=== PATIENT | female | born 1980 | race Caucasian/White ===

== ENCOUNTER 2019-01-11 09:51 | Inpatient (IN) | payer OTHER ==
[2019-01-11] MEDS ORDERED: ONDANSETRON (ODT) 4 MG TAB ODT (10:00)
[2019-01-11] MEDS ORDERED: morphine 4 MG/ML VIAL IM (10:00)
[2019-01-11] MEDS ORDERED: morphine 4 MG/ML VIAL IV (10:06)
[2019-01-11] MEDS ORDERED: morphine 10 MG INJ (10:11)
[2019-01-11] MEDS: ONDANSETRON 4 MG INJ IV (10:12)
[2019-01-11] MEDS: morphine 10 MG INJ IV (10:12)
[2019-01-11] MEDS ORDERED: DIPHENHYDRAMINE 50 MG INJ (10:45)
[2019-01-11] MEDS: DIPHENHYDRAMINE 50 MG INJ IV (10:49)
[2019-01-11] MEDS ORDERED: ACETAMINOPHEN 325 MG TAB PO (12:30)
[2019-01-11] MEDS ORDERED: ONDANSETRON 4 MG INJ IV ×2 (12:30→13:30)
[2019-01-11 12:49] LABS: ADD MAN DIFF? NO
[2019-01-11 12:50] LABS: WHITE BLOOD COUNT 11.1 10^3/ul (4.8-10.8)
[2019-01-11 12:50] LABS: BASOPHILS % 0.4 % (0.0-2.0); EOSINOPHILS # 0.1 10^3/ul (0.0-0.5); EOSINOPHILS % 0.6 % (0.0-7.0); HEMATOCRIT 37.1 % (37.0-47.0); LYMPHOCYTES # 1.7 10^3/ul (0.8-2.9); LYMPHOCYTES % 14.9 % (15.0-51.0); MEAN CORPUSCULAR HEMOGLOBIN 30.2 pg (29.0-33.0); MEAN CORPUSCULAR HGB CONC 32.3 g/dl (32.0-37.0); MEAN CORPUSCULAR VOLUME 93.2 fl (82.0-101.0); MEAN PLATELET VOLUME 12.7 fl (7.4-10.4); MONOCYTE # 0.7 10^3/ul (0.3-0.9); MONOCYTES % 6.6 % (0.0-11.0); NEUTROPHIL # 8.5 10^3/ul (1.6-7.5); NEUTROPHILS % 76.6 % (39.0-77.0); PLATELET COUNT 296 10^3/UL (140-415); RED BLOOD COUNT 3.98 10^6/ul (4.20-5.40); RED CELL DISTRIBUTION WIDTH 13.3 % (11.5-14.5)
[2019-01-11 12:54] LABS: INR 0.98; PROTIME 13.1 Sec (11.9-14.9)
[2019-01-11 12:57] LABS: ALANINE AMINOTRANSFERASE 22 IU/L (13-69); ALBUMIN 4.4 g/dl (3.3-4.9); ALBUMIN/GLOBULIN RATIO 1.22; ALKALINE PHOSPHATASE 105 IU/L (42-121); ANION GAP 11 (5-13); ASPARTATE AMINO TRANSFERASE 22 IU/L (15-46); BILIRUBIN,INDIRECT 0.2 mg/dl (0-1.1); BILIRUBIN,TOTAL 0.2 mg/dl (0.2-1.3); BLOOD UREA NITROGEN 15 mg/dl (7-20); CALCIUM 8.7 mg/dl (8.4-10.2); CARBON DIOXIDE 21 mmol/L (21-31); CHLORIDE 111 mmol/L (97-110); CREATININE 0.57 mg/dl (0.44-1.00); Estimated GFR > 60 mL/min (>60); GLUCOSE 97 mg/dl (70-220); POTASSIUM 4.2 mmol/L (3.5-5.1); SODIUM 143 mmol/L (135-144)
[2019-01-11] MEDS ORDERED: NACL 0.9% 3 ML SYG IV (13:30)
[2019-01-11 14:09] LABS: MAGNESIUM 1.8 mg/dl (1.7-2.5)
[2019-01-11 14:49] LABS: HEMOGLOBIN A1C 4.8 % (0-5.9)
[2019-01-11 15:02] LABS: FREE T4 (FREE THYROXINE) 0.63 ng/dl (0.79-2.35)
[2019-01-11] MEDS: ZONISAMIDE 100 MG CAP PO (22:06)
[2019-01-11] MEDS: LAMOTRIGINE 100 MG TAB PO (22:06)
[2019-01-11] MEDS: OXCARBAZEPINE 300 MG TAB PO (22:47)
[2019-01-12 05:18] LABS: ADD MAN DIFF? NO
[2019-01-12 05:20] LABS: BASOPHILS % 0.3 % (0.0-2.0); EOSINOPHILS % 0.1 % (0.0-7.0); HEMATOCRIT 34.1 % (37.0-47.0); HEMOGLOBIN 11.1 g/dl (12.0-16.0); LYMPHOCYTES # 1.2 10^3/ul (0.8-2.9); LYMPHOCYTES % 11.1 % (15.0-51.0); MEAN CORPUSCULAR HEMOGLOBIN 29.8 pg (29.0-33.0); MEAN CORPUSCULAR HGB CONC 32.6 g/dl (32.0-37.0); MEAN CORPUSCULAR VOLUME 91.4 fl (82.0-101.0); MEAN PLATELET VOLUME 11.9 fl (7.4-10.4); MONOCYTE # 0.7 10^3/ul (0.3-0.9); MONOCYTES % 6.7 % (0.0-11.0); NEUTROPHILS % 81.3 % (39.0-77.0); PLATELET COUNT 276 10^3/UL (140-415); RED BLOOD COUNT 3.73 10^6/ul (4.20-5.40); RED CELL DISTRIBUTION WIDTH 13.2 % (11.5-14.5)
[2019-01-12 05:20] LABS: WHITE BLOOD COUNT 11.1 10^3/ul (4.8-10.8)
[2019-01-12 06:04] LABS: CHOLESTEROL 182 mg/dl (100-200)
[2019-01-12 06:04] LABS: CHOL/HDL RATIO 3.9 RATIO; HDL CHOLESTEROL 46 mg/dl (34-82); LDL CHOLESTEROL,CALCULATED 111 mg/dl; TRIGLYCERIDES 123 mg/dl (0-149)
[2019-01-12 06:06] LABS: MAGNESIUM 1.8 mg/dl (1.7-2.5)
[2019-01-12 06:06] LABS: PHOSPHORUS 2.7 mg/dl (2.5-4.9)
[2019-01-12 06:19] LABS: ALANINE AMINOTRANSFERASE 17 IU/L (13-69); ALBUMIN 4.1 g/dl (3.3-4.9); ALKALINE PHOSPHATASE 100 IU/L (42-121); ANION GAP 9 (5-13); ASPARTATE AMINO TRANSFERASE 18 IU/L (15-46); BILIRUBIN,INDIRECT 0.3 mg/dl (0-1.1); BILIRUBIN,TOTAL 0.3 mg/dl (0.2-1.3); BLOOD UREA NITROGEN 13 mg/dl (7-20); CALCIUM 9.1 mg/dl (8.4-10.2); CARBON DIOXIDE 19 mmol/L (21-31); CHLORIDE 111 mmol/L (97-110); CREATININE 0.49 mg/dl (0.44-1.00); Estimated GFR > 60 mL/min (>60); GLUCOSE 130 mg/dl (70-220); POTASSIUM 4.1 mmol/L (3.5-5.1); SODIUM 139 mmol/L (135-144); TOTAL PROTEIN 7.5 g/dl (6.1-8.1)
[2019-01-12] MEDS: morphine 2 MG INJ IV (09:31)
[2019-01-12] MEDS: OXCARBAZEPINE 300 MG TAB PO ×2 (09:39→21:29)
[2019-01-12] MEDS: ZONISAMIDE 100 MG CAP PO ×2 (09:40→21:30)
[2019-01-12] MEDS: LAMOTRIGINE 100 MG TAB PO ×2 (09:40→21:29)
[2019-01-13 06:27] LABS: ADD MAN DIFF? NO
[2019-01-13 06:36] LABS: BASOPHIL # 0.1 10^3/ul (0.0-0.1); BASOPHILS % 0.5 % (0.0-2.0); EOSINOPHILS # 0.1 10^3/ul (0.0-0.5); EOSINOPHILS % 1.1 % (0.0-7.0); HEMATOCRIT 37.4 % (37.0-47.0); LYMPHOCYTES # 2.2 10^3/ul (0.8-2.9); LYMPHOCYTES % 21.5 % (15.0-51.0); MEAN CORPUSCULAR HEMOGLOBIN 29.7 pg (29.0-33.0); MEAN CORPUSCULAR HGB CONC 32.1 g/dl (32.0-37.0); MEAN CORPUSCULAR VOLUME 92.6 fl (82.0-101.0); MEAN PLATELET VOLUME 12.4 fl (7.4-10.4); MONOCYTE # 1.1 10^3/ul (0.3-0.9); MONOCYTES % 10.6 % (0.0-11.0); NEUTROPHIL # 6.5 10^3/ul (1.6-7.5); PLATELET COUNT 277 10^3/UL (140-415); RED BLOOD COUNT 4.04 10^6/ul (4.20-5.40); RED CELL DISTRIBUTION WIDTH 13.3 % (11.5-14.5)
[2019-01-13 07:09] LABS: ANION GAP 10 (5-13); BLOOD UREA NITROGEN 14 mg/dl (7-20); CALCIUM 8.6 mg/dl (8.4-10.2); CARBON DIOXIDE 22 mmol/L (21-31); CHLORIDE 107 mmol/L (97-110); CREATININE 0.59 mg/dl (0.44-1.00); Estimated GFR > 60 mL/min (>60); GLUCOSE 102 mg/dl (70-220); POTASSIUM 3.7 mmol/L (3.5-5.1); SODIUM 139 mmol/L (135-144)
[2019-01-13] MEDS: ZONISAMIDE 100 MG CAP PO ×2 (09:00→23:56)
[2019-01-13] MEDS: OXCARBAZEPINE 300 MG TAB PO ×2 (09:00→23:55)
[2019-01-13] MEDS: LAMOTRIGINE 100 MG TAB PO ×2 (09:00→23:55)
[2019-01-13] MEDS ORDERED: CEFAZOLIN 1 GM INJ (12:10)
[2019-01-13] MEDS ORDERED: DESFLURANE 15 MIN (12:10)
[2019-01-13] MEDS ORDERED: DEXAMETHASONE 4 MG/ML 5 ML INJ (12:10)
[2019-01-13] MEDS ORDERED: FENTAnyl 50 MCG/ML VIAL ×3 (12:10→20:40)
[2019-01-13] MEDS ORDERED: GLYCOPYRROLATE 0.4 MG INJ (12:10)
[2019-01-13] MEDS ORDERED: NEOSTIGMINE 3 MG/3 ML SYRINGE (12:10)
[2019-01-13] MEDS ORDERED: ONDANSETRON 4 MG INJ (12:10)
[2019-01-13] MEDS ORDERED: PROPOFOL 20 ML (12:10)
[2019-01-13] MEDS ORDERED: MIDAZOLAM 1 MG/ML 2 ML INJ (12:10)
[2019-01-13] MEDS ORDERED: ROCURONIUM 50 MG INJ (12:10)
[2019-01-13] MEDS ORDERED: ROPIVACAINE 0.5 % 30 ML VIAL (12:11)
[2019-01-13] MEDS ORDERED: DIPHENHYDRAMINE 50 MG INJ IV (17:00)
[2019-01-13] MEDS ORDERED: MEPERIDINE 25 MG INJ IV (17:00)
[2019-01-13] MEDS ORDERED: OXYCODONE/ACETAMINOPHEN (5/325) TAB PO ×2 (17:00)
[2019-01-13] MEDS ORDERED: hydrALAzine 20 MG INJ IV (17:00)
[2019-01-13] MEDS ORDERED: LABETALOL HCL 20MG INJ IV (17:00)
[2019-01-13] MEDS ORDERED: IPRATROPIUM (NEB) 0.5 MG/2.5 ML AMP HHN (17:00)
[2019-01-13] MEDS ORDERED: ALBUTEROL 0.083% (NEB) 2.5 MG/3 ML AMP HHN (17:00)
[2019-01-13] MEDS ORDERED: ONDANSETRON 4 MG INJ IV (17:00)
[2019-01-13] MEDS ORDERED: EPHEDrine 25 MG/5 ML SYG IV (17:00)
[2019-01-13] MEDS ORDERED: TRIMETHOBENZAMIDE 100 MG/ML VIAL IM (17:00)
[2019-01-13] MEDS ORDERED: HYDROmorphONE 1 MG/5 ML IV SYRINGE IV ×3 (17:00)
[2019-01-13] MEDS ORDERED: FENTAnyl 50 MCG/ML VIAL IV ×3 (17:00)
[2019-01-13] MEDS ORDERED: MIDAZOLAM 1 MG/ML 2 ML INJ IV (17:00)
[2019-01-13] MEDS: POLYMYXIN/BACITRACIN 1L IRRIG IRR (18:44)
[2019-01-13] MEDS: CEFAZOLIN 2 GM/50 ML (PMX) 50 ML IVPB (23:56)
[2019-01-14 05:07] LABS: ADD MAN DIFF? NO
[2019-01-14 05:10] LABS: BASOPHILS % 0.2 % (0.0-2.0); HEMATOCRIT 33.8 % (37.0-47.0); HEMOGLOBIN 11.1 g/dl (12.0-16.0); LYMPHOCYTES # 0.8 10^3/ul (0.8-2.9); LYMPHOCYTES % 6.5 % (15.0-51.0); MEAN CORPUSCULAR HEMOGLOBIN 30.1 pg (29.0-33.0); MEAN CORPUSCULAR HGB CONC 32.8 g/dl (32.0-37.0); MEAN CORPUSCULAR VOLUME 91.6 fl (82.0-101.0); MEAN PLATELET VOLUME 12.4 fl (7.4-10.4); MONOCYTE # 0.7 10^3/ul (0.3-0.9); NEUTROPHIL # 10.7 10^3/ul (1.6-7.5); NEUTROPHILS % 86.2 % (39.0-77.0); PLATELET COUNT 285 10^3/UL (140-415); RED BLOOD COUNT 3.69 10^6/ul (4.20-5.40); RED CELL DISTRIBUTION WIDTH 13.2 % (11.5-14.5)
[2019-01-14 05:10] LABS: WHITE BLOOD COUNT 12.3 10^3/ul (4.8-10.8)
[2019-01-14 05:29] LABS: ANION GAP 11 (5-13); BLOOD UREA NITROGEN 11 mg/dl (7-20); CALCIUM 8.3 mg/dl (8.4-10.2); CARBON DIOXIDE 19 mmol/L (21-31); CHLORIDE 110 mmol/L (97-110); CREATININE 0.49 mg/dl (0.44-1.00); Estimated GFR > 60 mL/min (>60); GLUCOSE 125 mg/dl (70-220); POTASSIUM 3.9 mmol/L (3.5-5.1); SODIUM 140 mmol/L (135-144)
[2019-01-14] MEDS: CEFAZOLIN 2 GM/50 ML (PMX) 50 ML IVPB ×2 (05:58→14:47)
[2019-01-14] MEDS: OXCARBAZEPINE 300 MG TAB PO ×2 (08:45→22:20)
[2019-01-14] MEDS: ZONISAMIDE 100 MG CAP PO ×2 (08:45→21:00)
[2019-01-14] MEDS: LAMOTRIGINE 100 MG TAB PO ×2 (08:45→22:20)
[2019-01-14] MEDS: ASPIRIN (EC) 81 MG TAB PO (08:45)
[2019-01-14] MEDS ORDERED: ENOXAPARIN 40 MG/0.4 ML SYG SC (12:00)
[2019-01-14] MEDS: HYDROCODONE/APAP (5/325) TAB PO (15:41)
[2019-01-14] MEDS ORDERED: NAPHAZOLINE 0.012% 15 ML OPH BOTH EYES (17:00)
[2019-01-14] MEDS: ENOXAPARIN 40 MG/0.4 ML SYG SC (22:22)
[2019-01-14] MEDS: ZONISAMIDE 25 MG CAP PO (23:00)
[2019-01-15] MEDS: HYDROCODONE/APAP (5/325) TAB PO ×3 (05:33→18:21)
[2019-01-15 05:39] LABS: ANION GAP 9 (5-13); BLOOD UREA NITROGEN 12 mg/dl (7-20); CALCIUM 7.9 mg/dl (8.4-10.2); CARBON DIOXIDE 23 mmol/L (21-31); CHLORIDE 106 mmol/L (97-110); CREATININE 0.57 mg/dl (0.44-1.00); Estimated GFR > 60 mL/min (>60); GLUCOSE 101 mg/dl (70-220); POTASSIUM 3.3 mmol/L (3.5-5.1); SODIUM 138 mmol/L (135-144)
[2019-01-15] MEDS: OXCARBAZEPINE 300 MG TAB PO ×2 (09:12→21:51)
[2019-01-15] MEDS: LAMOTRIGINE 100 MG TAB PO ×2 (09:13→21:51)
[2019-01-15] MEDS: ZONISAMIDE 25 MG CAP PO ×2 (09:13→21:50)
[2019-01-15] MEDS: POTASSIUM CHLORIDE (SR) 20 MEQ TAB PO (11:03)
[2019-01-15] MEDS: ENOXAPARIN 40 MG/0.4 ML SYG SC (21:54)
[2019-01-16 05:11] LABS: ADD MAN DIFF? NO
[2019-01-16 05:18] LABS: BASOPHIL # 0.1 10^3/ul (0.0-0.1); BASOPHILS % 0.6 % (0.0-2.0); EOSINOPHILS # 0.1 10^3/ul (0.0-0.5); EOSINOPHILS % 1.2 % (0.0-7.0); HEMATOCRIT 34.2 % (37.0-47.0); HEMOGLOBIN 11.1 g/dl (12.0-16.0); LYMPHOCYTES # 1.6 10^3/ul (0.8-2.9); MEAN CORPUSCULAR HEMOGLOBIN 30.1 pg (29.0-33.0); MEAN CORPUSCULAR HGB CONC 32.5 g/dl (32.0-37.0); MEAN CORPUSCULAR VOLUME 92.7 fl (82.0-101.0); MEAN PLATELET VOLUME 12.3 fl (7.4-10.4); MONOCYTES % 11.7 % (0.0-11.0); NEUTROPHIL # 5.9 10^3/ul (1.6-7.5); NEUTROPHILS % 66.6 % (39.0-77.0); PLATELET COUNT 289 10^3/UL (140-415); RED BLOOD COUNT 3.69 10^6/ul (4.20-5.40); RED CELL DISTRIBUTION WIDTH 13.3 % (11.5-14.5)
[2019-01-16 05:18] LABS: WHITE BLOOD COUNT 8.9 10^3/ul (4.8-10.8)
[2019-01-16 05:45] LABS: ANION GAP 10 (5-13); BLOOD UREA NITROGEN 13 mg/dl (7-20); CALCIUM 8.1 mg/dl (8.4-10.2); CARBON DIOXIDE 22 mmol/L (21-31); CHLORIDE 106 mmol/L (97-110); CREATININE 0.49 mg/dl (0.44-1.00); Estimated GFR > 60 mL/min (>60); GLUCOSE 108 mg/dl (70-220); POTASSIUM 3.6 mmol/L (3.5-5.1); SODIUM 138 mmol/L (135-144)
[2019-01-16] MEDS: LAMOTRIGINE 100 MG TAB PO (08:49)
[2019-01-16] MEDS: ZONISAMIDE 25 MG CAP PO (08:49)
[2019-01-16] MEDS: OXCARBAZEPINE 300 MG TAB PO (08:49)
[2019-01-16] MEDS: HYDROCODONE/APAP (5/325) TAB PO (08:53)
[2019-01-16] MEDS: ACETAMINOPHEN 325 MG TAB PO (13:36)
== END 2019-01-16 15:10 | disposition home health service (06) | DRG 494 ==
LOC: MS1 01-13 22:00 → E/R 09:51 → 2NE 12:09
PROC: 0QSJ04Z Reposition Right Fibula with Internal Fixation Device, Open Approach (ICD-10-PCS; principal; 2019-01-13 12:30)
PROC: 0QSG04Z Reposition Right Tibia with Internal Fixation Device, Open Approach (ICD-10-PCS; 2019-01-13 12:30)
DX: S82.851A Displaced trimalleolar fracture of right lower leg, initial encounter for closed fracture (principal); R62.50 Unspecified lack of expected normal physiological development in childhood; E66.9 Obesity, unspecified; Z68.36 Body mass index [BMI] 36.0-36.9, adult; G40.909 Epilepsy, unspecified, not intractable, without status epilepticus
CPT/HCPCS: 71045; 73560; 73590; 73610-RT; 73630; 80048; 80053; 80061; 83036; 83735; 84100; 84439; 84443; 84703; 85025; 85610; 93005; 96374; 96375; 97163; 97530; 99285-25